=== PATIENT | female | born 1960 | race Caucasian/White ===

== ENCOUNTER 2017-06-16 22:29 | Emergency (ER) | payer BC ==
[~2017-06-16] VITALS: Ht 162.6 cm; Wt 90.7 kg
[~2017-06-16 22:29] MED LIST: CYCL10 PO; DIAZ5 PO; FLUO10 PO; GABA100 PO; HYDACE5 PO; HYDSUL200; LEVSOD137 PO; LIDO5TP TOP; NAPR500 PO; OXYACE5T; OXYACE5T PO; OXYC10TA19 PO; PREG150 PO; RIFA300; SULTRIDS; VENL37.5ER; VERA240ER; VERA80; ZOLP12.5 PO; [UNRECOGNIZED DRUG - REMARK]; [UNRECOGNIZED DRUG - REMARK]
[2017-06-16] MEDS ORDERED: ESCI20 PO (23:02)
[2017-06-16] MEDS ORDERED: HYDSUL200 PO (23:02)
[2018-04-04] MEDS ORDERED: Prozac20 MG PO (13:33)
[2018-04-04] MEDS ORDERED: Omeprazole20 M1 PO (13:34)
[2018-04-04] MEDS ORDERED: Celebrex50 MG PO (13:39)
== END 2017-06-17 00:36 | disposition left against medical advice (07) ==
LOC: ER 22:29
DX: Z53.21 Procedure and treatment not carried out due to patient leaving prior to being seen by health care provider (principal)

== ENCOUNTER → 2019-01-02 | Outpatient (CLI) | payer BC ==
[~2019-01-02] MED LIST changes: +Celebrex50 MG PO; +ESCI20 PO; +HYDSUL200 PO; +Omeprazole20 M1 PO; +Prozac20 MG PO
[2019-01-02 12:35] LABS: BASOPHILS ABSOLUTE AUTO 0.11 K/mm3 (0.00-0.23); BASOPHILS PERCENT AUTO 3 % (0-2); EOSINOPHILS ABSOLUTE AUTO 0.56 K/mm3 (0.00-0.68); EOSINOPHILS PERCENT AUTO 15 % (0-6); Hematocrit 41.4 % (33.0-51.0); Hemoglobin 13.6 g/dL (11.5-16.0); IMMATURE GRAN ABSOLUTE AUTO 0.01 K/mm3 (0.00-0.10); IMMATURE GRAN PERCENT AUTO 0 % (0-1); LYMPHOCYTES ABSOLUTE AUTO 1.51 K/mm3 (0.84-5.20); LYMPHOCYTES PERCENT AUTO 40 % (21-46); MONOCYTES ABSOLUTE AUTO 0.54 K/mm3 (0.16-1.47); MONOCYTES PERCENT AUTO 14 % (4-13); Mean Corpuscular HGB 29.2 pg (26.0-34.0); Mean Corpuscular HGB Conc 32.9 g/dL (31.5-36.5); Mean Corpuscular Volume 89 fL (80-100); Mean Platelet Volume 9.5 fL (9.1-12.4); NEUTROPHILS ABSOLUTE AUTO 1.08 K/mm3 (1.96-9.15); NEUTROPHILS PERCENT AUTO 28 % (41-73); Platelet Count 311 K/mm3 (150-400); RDW Coefficient Variation 14.5 % (11.7-14.2); Red Blood Cell Count 4.65 M/mm3 (3.80-5.20); White Blood Cell Count 3.81 K/mm3 (4.00-11.30)
[2019-01-02 12:53] LABS: Alanine Aminotransfer (ALT/SGP 53 U/L (12-78); Albumin/Globulin Ratio 1.1 (0.8-1.8); Alk Phos 134 U/L (40-126); Anion Gap 8 mmol/L (6-16); Aspartate Aminotrans (AST/SGOT 44 U/L (12-37); Bilirubin, Total 0.3 mg/dL (0.1-1.0); Blood Urea Nitrogen 15 mg/dL (8-24); Bun/Creatinine Ratio 13.9 (12.0-20.0); CO2, Blood 29 mmol/L (21-32); Calcium, Blood 9.2 mg/dL (8.5-10.1); Chloride, Blood 101 mmol/L (98-108); Creatinine, Blood 1.08 mg/dL (0.40-1.00); Globulin, Blood 3.8 g/dL (2.2-4.0); Glomerular Filtration Rate 52 (60-); Glucose, Blood 119 mg/dL (70-99); Potassium, Blood 4.2 mmol/L (3.5-5.5); Sodium, Blood 138 mmol/L (136-145); Thyroid Stimulating Hormone 137.177 uIU/mL (0.360-4.800); Total Protein, Blood 7.8 g/dL (6.4-8.2); Troponin I <0.017 ng/mL (0.000-0.040)
== END | disposition home or self-care (01) ==
LOC: LAB SHORT 12:30 → LAB EV 12:30
PROVIDERS: Physician Assistant Medical
DX: R53.83 Other fatigue (principal)
CPT/HCPCS: 80053; 84443; 84484; 85025

== ENCOUNTER → 2019-06-30 | Outpatient (CLI) | payer BC ==
[2019-06-30 14:41] LABS: Hematocrit 42.6 % (33.0-51.0); Hemoglobin 14.3 g/dL (11.5-16.0); Mean Corpuscular HGB 28.4 pg (26.0-34.0); Mean Corpuscular HGB Conc 33.6 g/dL (31.5-36.5); Mean Corpuscular Volume 85 fL (80-100); Mean Platelet Volume 9.7 fL (9.1-12.4); RDW Coefficient Variation 12.8 % (11.7-14.2); RDW Standard Deviation 39.2 fL (35.1-46.3); Red Blood Cell Count 5.03 M/mm3 (3.80-5.20); White Blood Cell Count 2.42 K/mm3 (4.00-11.30)
[2019-06-30 14:49] LABS: Anion Gap 12 mmol/L (6-16); Blood Urea Nitrogen 20 mg/dL (8-24); Bun/Creatinine Ratio 28.6 (12.0-20.0); CO2, Blood 23 mmol/L (21-32); Calcium, Blood 8.6 mg/dL (8.5-10.1); Chloride, Blood 101 mmol/L (98-108); Glomerular Filtration Rate >60 (60-); Glucose, Blood 161 mg/dL (70-99); Potassium, Blood 4.3 mmol/L (3.5-5.5); Sodium, Blood 136 mmol/L (136-145)
[2019-06-30 15:35] LABS: Platelet Count 271 K/mm3 (150-400)
[2019-06-30 16:19] LABS: BAND PERCENT MAN 29 % (0-8); BASOPHILS PERCENT MAN 0 % (0-2); EOSINOPHILS PERCENT MAN 0 % (0-6); LYMPHOCYTES ABSOLUTE MAN 0.67 K/mm3 (0.84-5.20); LYMPHOCYTES PERCENT MAN 28 % (21-46); METAMYELOCYTE ABSOLUTE MAN 0.07 K/mm3 (0.00-0.00); METAMYELOCYTE PERCENT MAN 3 % (0-0); MONOCYTES ABSOLUTE MAN 0.36 K/mm3 (0.16-1.47); MONOCYTES PERCENT MAN 15 % (4-13); SEG NEUTROPHILS PERCENT MAN 25 % (41-73); TOTAL CELLS COUNTED 100
== END ==
LOC: LAB SHORT 14:33 → LAB EV 14:33
PROVIDERS: Physician Assistant Surgical
DX: R11.2 Nausea with vomiting, unspecified (principal)
CPT/HCPCS: 80048; 85025

== ENCOUNTER 2020-08-06 11:02 | Day surgery (SDC) | payer BC ==
[~2020-08-06] VITALS: Ht 162.6 cm; Wt 102.6 kg
[~2020-08-06 11:02] MED LIST changes: +ALBU90OI INH; +ALBUTEROL1.25 MG/3 NEB; +BENADRYL25 MG PO; +DICLOFENAC SOD100 G1 TOP; +ETOD400 PO; +MOTION RELIEF25 MG PO
[2020-08-06] MEDS ORDERED: PLAQUENIL200 MG PO (11:27)
[2020-08-06] MEDS ORDERED: DULO60 PO (11:27)
[2020-08-06] MEDS ORDERED: Ropinirole HCl1 MG PO (11:28)
--- NOTE | 2020-08-06 11:43 | NUR ---
Ambulatory in Day Surgery Surgical site prepped with 2% Chlorhexidine cloth wipe. History, Chart, Medications and Allergies reviewed before start of procedure. Lungs clear T/O to Auscultation. Patient confirms NPO status and agrees with scheduled surgery.
[2020-08-06 16:48] LABS: Hematocrit 34.5 % (33.0-51.0); Hemoglobin 10.9 g/dL (11.5-16.0)
--- NOTE | 2020-08-06 17:43 | NUR ---
PT ARRIVED TO THE ROOM DROWSY BUT AWAKE AND ORIENTED. SHE IS MOANING IN PAIN AND SHAKING. PT WAS GIVEN DILAUDID AND TORADOL TO HELP MANAGE PAIN. PT'S DAUGHTER PRESENT AT BEDSIDE FOR SUPPORT. PT'S DAUGHTER APPEARS ANXIOUS ABOUT PT'S LEVEL OF PAIN. PT AND HER DAUGHTER WERE EDUCATED ABOUT THE RISKS OF PAIN MEDICATION SINCE PT APPEARS TO HAVE APNEA WHEN SHE FALLS ASLEEP.
--- NOTE | 2020-08-06 18:05 | NUR ---
PAIN PT APPEARS TO BE RESTING BETTER AT THIS TIME. SHE APPEARS TO BE ABLE TO FALL ASLEEP. SHE OCCASIONALLY WAKES UP AND MOANS BUT QUICKLY FALLS BACK TO SLEEP. WILL CONTINUE TO MONITOR.
--- NOTE | 2020-08-06 19:06 | NUR ---
SHIFT SUMMARY PT HAD SURGERY TODAY WITH DR. HOGAN. PT ARRIVED TO THE ROOM IN 01/17 PAIN MOANING AND CRYING. TORADOL AND DILAUDID GIVEN TO MANAGE PAIN. OXYCODONE WAS GIVEN LATER TO HELP CONTINUE TO MANAGE PAIN. PT'S DAUGHTER IS AT THE BEDSIDE FOR SUPPORT AND BROUGHT PT'S CPAP. PT WAS ASSISTED TO REPOSITION ONTO HER L SIDE TO HELP WITH PAIN MANAGEMENT. PT HAS A BRUISE PRESENT TO HER R HIP AND THIGH. VSS. REPORT GIVEN TO ENRIQUE MICHEL.
[2020-08-07 05:09] LABS: BASOPHILS ABSOLUTE AUTO 0.01 K/mm3 (0.00-0.23); BASOPHILS PERCENT AUTO 0 % (0-2); EOSINOPHILS PERCENT AUTO 0 % (0-6); Hematocrit 27.8 % (33.0-51.0); Hemoglobin 9.1 g/dL (11.5-16.0); IMMATURE GRAN ABSOLUTE AUTO 0.04 K/mm3 (0.00-0.10); IMMATURE GRAN PERCENT AUTO 1 % (0-1); LYMPHOCYTES PERCENT AUTO 8 % (21-46); MONOCYTES ABSOLUTE AUTO 0.51 K/mm3 (0.16-1.47); MONOCYTES PERCENT AUTO 7 % (4-13); Mean Corpuscular HGB 29.4 pg (26.0-34.0); Mean Corpuscular HGB Conc 32.7 g/dL (31.5-36.5); Mean Corpuscular Volume 90 fL (80-100); Mean Platelet Volume 10.2 fL (9.1-12.4); NEUTROPHILS ABSOLUTE AUTO 6.29 K/mm3 (1.96-9.15); NEUTROPHILS PERCENT AUTO 85 % (41-73); Platelet Count 211 K/mm3 (150-400); RDW Coefficient Variation 12.5 % (11.7-14.2); Red Blood Cell Count 3.09 M/mm3 (3.80-5.20); White Blood Cell Count 7.45 K/mm3 (4.00-11.30)
[2020-08-07 05:33] LABS: Anion Gap 5 mmol/L (6-16); Blood Urea Nitrogen 14 mg/dL (8-24); Bun/Creatinine Ratio 22.6 (12.0-20.0); CO2, Blood 27 mmol/L (21-32); Calcium, Blood 7.8 mg/dL (8.5-10.1); Chloride, Blood 107 mmol/L (98-108); Creatinine, Blood 0.62 mg/dL (0.40-1.00); Glomerular Filtration Rate >60 (60-); Glucose, Blood 179 mg/dL (70-99); Magnesium, Blood 1.8 mg/dL (1.6-2.4); Potassium, Blood 4.6 mmol/L (3.5-5.5); Sodium, Blood 139 mmol/L (136-145)
--- NOTE | 2020-08-07 05:39 | NUR ---
SHIFT ASSESSMENT SITTING UP IN CHAIR AT BEDSIDE DRINKING COFFEE AFTER AMBULATING IN TO BATHROOM TO VOID. GOOD OUTPUT NOTED THROUGHOUT SHIFT. AAO X4, NORTH, FAC, HAS BEEN COOPERATIVE AND PLEASANT WITH CARE. NO SIGNIFICANT CHANGES NOTED. PAIN MANAGED WITH PRN AND SCHEDULED MEDS. SL PIV IS PATENT. SCD'S, NILAM, AND POLAR PAC IN PLACE. AQUACELL IN PLACE, MILD CONTUSIONS NOTED AROUND SURGICAL AREA NOTED. MEDICATED FOR PAIN AFTER AMBULATION. DENIES FURTHER NEEDS AT THIS TIME. SAFETY MEASURES IN PLACE. WILL CONTINUE TO MONITOR AND GIVE HAND OFF TO ONCOMING SHIFT USING SBAR.
--- NOTE | 2020-08-07 07:10 | NUR ---
RECVD REPORT FROM PREVIOUS SHIFT RN PABLO, PT SITTING UP IN CHAIR, A/O X 4, PLEASANT/COOPERATIVE, DENIES PAIN AT THIS TIME, CALL LIGHT WITHIN REACH, ICE MACHINE IN PLACE.
--- NOTE | 2020-08-07 08:46 | NUR ---
dr andrews rounded on pt at approx 0820, daughter in with pt now
--- NOTE | 2020-08-07 09:45 | NUR ---
PT in with patient and therapy women's soccer coach
[2020-08-07] MEDS ORDERED: Aspir 8181 MG PO (10:53)
--- NOTE | 2020-08-07 13:07 | NUR ---
pt provided with discharge instructions, printed materials, peripheral IV removed wnl. pt's belongings transferred to awaiting vehicle by pt's daughter. pt transferred to awaiting vehicle via wheelchair. pt states understanding of discharge instructions
== END 2020-08-07 13:05 | disposition home or self-care (01) ==
LOC: ORSCMMR 11:02 → ORD 12:15 → ORSCMMR 12:15 → SURS 17:15 → ORSCMMR 08-07 13:05
PROVIDERS: Anesthesiology; Orthopaedic Surgery
PROC: 0SR90JA Replacement of Right Hip Joint with Synthetic Substitute, Uncemented, Open Approach (ICD-10-PCS; principal; 2020-08-06 11:30)
DX: M16.11 Unilateral primary osteoarthritis, right hip (principal); J45.909 Unspecified asthma, uncomplicated; G47.33 Obstructive sleep apnea (adult) (pediatric); Z87.891 Personal history of nicotine dependence; E03.9 Hypothyroidism, unspecified; M32.9 Systemic lupus erythematosus, unspecified; M79.7 Fibromyalgia; E66.01 Morbid (severe) obesity due to excess calories; Z68.38 Body mass index [BMI] 38.0-38.9, adult; Z79.899 Other long term (current) drug therapy
CPT/HCPCS: 36415; 72170; 80048; 83735; 85014; 85018; 85025; 94762; 97110; 97116; 97161; 97165; 97530; 97535; A9270; C1776; J0171; J0461; J0690; J0735; J1100; J1170; J1885; J2250; J2370; J2405; J2704; J2795; J3010; J7120

== ENCOUNTER 2021-12-16 13:24 | Emergency (ER) | payer BC ==
[~2021-12-16] VITALS: Ht 162.6 cm; Wt 75.8 kg
[~2021-12-16 13:24] MED LIST changes: +Aspir 8181 MG PO; +DULO60 PO; +PLAQUENIL200 MG PO; +Ropinirole HCl1 MG PO
[2021-12-16] MEDS ORDERED: Prednisone20 MG PO (15:53)
== END 2021-12-16 16:10 | disposition home or self-care (01) ==
LOC: ER 13:24
DX: M54.42 Lumbago with sciatica, left side (principal); E03.9 Hypothyroidism, unspecified; Z79.82 Long term (current) use of aspirin; Z79.899 Other long term (current) drug therapy; Z87.891 Personal history of nicotine dependence
CPT/HCPCS: 72131; J1885; J7512

== ENCOUNTER → 2025-03-02 | Outpatient (CLI) | payer BC ==
[~2025-03-02] MED LIST changes: +GABA300 PO; +MECL25; +Prednisone20 MG PO; +ROPI1; +WIXELA 250-501 EAC1 INH
== END ==
LOC: LAB 16:37 → LAB SHORT 16:37
DX: R30.0 Dysuria (principal)
CPT/HCPCS: 87077; 87086; 87186